=== PATIENT | male | born 1985 | race African-American/Black ===

== ENCOUNTER 2019-12-08 21:49 | Emergency (ER) | payer OTHER ==
[~2019-12-08] VITALS: Ht 185.4 cm; Wt 85.3 kg
[2019-12-08 21:50] VITALS: BP 143/98
== END 2019-12-08 22:32 | disposition home or self-care (01) ==
LOC: ER 21:49
DX: F10.129 Alcohol abuse with intoxication, unspecified (principal); F17.210 Nicotine dependence, cigarettes, uncomplicated